=== PATIENT | female | born 1950 | race Caucasian/White ===

== ENCOUNTER 2023-07-07 00:01 | Emergency (ER) | payer BC, MEDICARE ==
[2023-07-07 00:33] LABS: BASOPHILS ABSOLUTE AUTO 0.04 K/uL (0.00-0.20); BASOPHILS PERCENT AUTO 0.4 % (0.0-2.0); EOSINOPHILS ABSOLUTE AUTO 0.21 K/uL (0.00-0.50); EOSINOPHILS PERCENT AUTO 1.9 % (0.0-5.0); HEMOGLOBIN 14.1 g/dL (11.7-15.5); LYMPHOCYTES ABSOLUTE AUTO 2.09 K/uL (0.50-3.50); LYMPHOCYTES PERCENT AUTO 18.7 % (10.0-50.0); MEAN CORPUSCULAR HEMOGLOBIN 25.3 pg (28.2-33.3); MONOCYTES ABSOLUTE AUTO 0.78 K/uL (0.00-1.00); NEUTROPHILS ABSOLUTE AUTO 8.08 K/uL (1.40-7.00); PLATELET COUNT,PLT 216 K/uL (150-350); RED BLOOD CELL COUNT 5.57 M/uL (3.77-5.09); RED CELL DISTRIBUTION WIDTH 15.3 % (11.2-14.1); WHITE BLOOD CELL COUNT,WBC 11.2 K/uL (4.0-10.2)
[2023-07-07] MEDS: Ketorolac 15 MG/ML SDV IVPUSH STA (00:40)
[2023-07-07] MEDS: Ondansetron 4 MG/2 ML SDV IVPUSH ONE (00:40)
[2023-07-07] MEDS: Sodium Chloride 0.9% 10 ML Syringe FLUSH PRN (00:41)
[2023-07-07] MEDS: Sodium Chloride 0.9% 1,000 ML IV SCH (00:48)
[2023-07-07 00:51] LABS: ALANINE AMINOTRANSFERASE,ALT 20 U/L (12-78); ALBUMIN 3.6 g/dL (3.4-5.0); ALKALINE PHOSPHATASE 124 IU/L (46-116); ANION GAP 9.6 meq/L (7-15); ASPARTATE AMNIOTRANSFERASE,AST 23 U/L (15-37); BILIRUBIN TOTAL 0.7 mg/dL (0.2-1.0); BLOOD UREA NITROGEN,BUN 32 mg/dL (7-18); C-REACTIVE PROTEIN 1.61 mg/dL (0.05-0.30); CALCIUM 9.1 mg/dL (8.5-10.1); CARBON DIOXIDE,CO2 25.4 mmol/L (21.0-32.0); CHLORIDE,CL 104 mmol/L (98-107); CREATININE 1.45 mg/dL (0.51-1.17); ESTIMATED GFR 39 mL/min (>=60); GLUCOSE RANDOM 186 mg/dL (70-99); POTASSIUM,K 4.2 mmol/L (3.5-5.1); PROTEIN TOTAL,TP 7.5 g/dL (6.4-8.2); SODIUM,NA 139 mmol/L (136-145)
== END 2023-07-07 02:30 | disposition home or self-care (01) ==
LOC: LL.ED 00:01
DX: K52.9 Noninfective gastroenteritis and colitis, unspecified (principal); I10 Essential (primary) hypertension; E11.9 Type 2 diabetes mellitus without complications; E03.9 Hypothyroidism, unspecified; E66.9 Obesity, unspecified; Z79.82 Long term (current) use of aspirin; Z79.899 Other long term (current) drug therapy; Z79.84 Long term (current) use of oral hypoglycemic drugs
CPT/HCPCS: 36415; 74176; 80053; 85025; 86140; 96361; 96374; 96375; 99284-25; J1885; J2405; J3490; J7030

== ENCOUNTER 2024-01-11 20:14 | Emergency (ER) | payer BC, MEDICARE ==
[2024-01-11 21:34] LABS: BASOPHILS ABSOLUTE AUTO 0.05 K/uL (0.00-0.20); BASOPHILS PERCENT AUTO 0.4 % (0.0-2.0); EOSINOPHILS PERCENT AUTO 1.7 % (0.0-5.0); HEMATOCRIT 43.2 % (34.0-46.0); HEMOGLOBIN 13.8 g/dL (11.7-15.5); LYMPHOCYTES ABSOLUTE AUTO 2.18 K/uL (0.50-3.50); LYMPHOCYTES PERCENT AUTO 18.3 % (10.0-50.0); MEAN CORPUSCULAR HEMOGLOBIN 25.7 pg (28.2-33.3); MEAN CORPUSCULAR HGB CONC 31.9 g/dL (31.7-36.0); MEAN CORPUSCULAR VOLUME 80.6 fL (84.0-98.0); MONOCYTES ABSOLUTE AUTO 0.69 K/uL (0.00-1.00); MONOCYTES PERCENT AUTO 5.8 % (2.0-14.0); NEUTROPHILS ABSOLUTE AUTO 8.77 K/uL (1.40-7.00); NEUTROPHILS PERCENT AUTO 73.8 % (45.0-80.0); PLATELET COUNT,PLT 261 K/uL (150-350); RED BLOOD CELL COUNT 5.36 M/uL (3.77-5.09); WHITE BLOOD CELL COUNT,WBC 11.9 K/uL (4.0-10.2)
[2024-01-11 21:55] LABS: ALANINE AMINOTRANSFERASE,ALT 18 U/L (12-78); ALBUMIN 3.6 g/dL (3.4-5.0); ALKALINE PHOSPHATASE 113 IU/L (46-116); ASPARTATE AMNIOTRANSFERASE,AST 22 U/L (15-37); BILIRUBIN TOTAL 0.9 mg/dL (0.2-1.0); BLOOD UREA NITROGEN,BUN 39 mg/dL (7-18); C-REACTIVE PROTEIN 1.59 mg/dL (0.05-0.30); CALCIUM 9.1 mg/dL (8.5-10.1); CHLORIDE,CL 103 mmol/L (98-107); CREATININE 1.88 mg/dL (0.51-1.17); ESTIMATED GFR 28 mL/min (>=60); GLUCOSE RANDOM 189 mg/dL (70-99); POTASSIUM,K 5.1 mmol/L (3.5-5.1); PROTEIN TOTAL,TP 7.2 g/dL (6.4-8.2); SODIUM,NA 139 mmol/L (136-145)
[2024-01-11] MEDS: Take Home: Ondansetron 4 MG Tab.DIS, 5 Tab Pack PO ONE (22:24)
== END 2024-01-11 22:40 | disposition home or self-care (01) ==
LOC: LL.ED 20:14
DX: K52.9 Noninfective gastroenteritis and colitis, unspecified (principal); I10 Essential (primary) hypertension; E11.9 Type 2 diabetes mellitus without complications; E03.9 Hypothyroidism, unspecified; E66.9 Obesity, unspecified; Z79.899 Other long term (current) drug therapy; Z79.82 Long term (current) use of aspirin; Z79.4 Long term (current) use of insulin
CPT/HCPCS: 36415; 80053; 85025; 86140; 99284; Q0162

== ENCOUNTER 2024-04-22 17:54 | Emergency (ER) | payer BC ==
[2024-04-22 18:18] VITALS: BP 132/71; PULSE 102
== END 2024-04-22 18:45 | disposition home or self-care (01) ==
LOC: LL.ED 17:54
DX: R10.9 Unspecified abdominal pain (principal); R11.0 Nausea; I10 Essential (primary) hypertension; E11.9 Type 2 diabetes mellitus without complications; E03.9 Hypothyroidism, unspecified; E66.9 Obesity, unspecified; Z90.49 Acquired absence of other specified parts of digestive tract; Z79.4 Long term (current) use of insulin; Z79.84 Long term (current) use of oral hypoglycemic drugs; Z79.890 Hormone replacement therapy; Z79.899 Other long term (current) drug therapy; Z68.41 Body mass index [BMI] 40.0-44.9, adult
CPT/HCPCS: 99283; 99284

== ENCOUNTER 2024-05-16 14:19 | Emergency (ER) | payer BC ==
[2024-05-16 14:49] LABS: BASOPHILS ABSOLUTE AUTO 0.05 K/uL (0.00-0.20); BASOPHILS PERCENT AUTO 0.7 % (0.0-2.0); EOSINOPHILS ABSOLUTE AUTO 0.27 K/uL (0.00-0.50); EOSINOPHILS PERCENT AUTO 3.9 % (0.0-5.0); HEMATOCRIT 36.8 % (34.0-46.0); HEMOGLOBIN 11.7 g/dL (11.7-15.5); IMMATURE GRAN ABSOLUTE AUTO 0.02 10^3/uL (0.00-0.04); IMMATURE GRAN PERCENT AUTO 0.3 % (0.0-0.4); LYMPHOCYTES ABSOLUTE AUTO 1.99 K/uL (0.50-3.50); LYMPHOCYTES PERCENT AUTO 28.6 % (10.0-50.0); MEAN CORPUSCULAR HGB CONC 31.8 g/dL (31.7-36.0); MEAN CORPUSCULAR VOLUME 81.8 fL (84.0-98.0); MONOCYTES ABSOLUTE AUTO 0.41 K/uL (0.00-1.00); MONOCYTES PERCENT AUTO 5.9 % (2.0-14.0); NEUTROPHILS ABSOLUTE AUTO 4.23 K/uL (1.40-7.00); NEUTROPHILS PERCENT AUTO 60.6 % (45.0-80.0); PLATELET COUNT,PLT 171 K/uL (150-350); RED CELL DISTRIBUTION WIDTH 15.2 % (11.2-14.1)
[2024-05-16 15:08] LABS: APPEARANCE,URINE CLEAR; BILIRUBIN,URINE NEGATIVE (NEGATIVE); COLOR,URINE YELLOW; GLUCOSE,URINE NEGATIVE (NEGATIVE); KETONES,URINE NEGATIVE (NEGATIVE); LEUKOCYTE ESTERASE,URINE NEGATIVE (NEGATIVE); NITRITE,URINE NEGATIVE (NEGATIVE); OCCULT BLOOD,URINE NEGATIVE (NEGATIVE); PH,URINE 6.5 (5.0-9.0); PROTEIN,URINE 100 mg/dL (NEGATIVE); UROBILINOGEN,URINE 0.2 E.U./dL (0.2-1.0)
[2024-05-16 15:12] LABS: ALBUMIN 3.9 g/dL (3.4-5.0); ANION GAP 11.3 meq/L (7-15); BILIRUBIN TOTAL 0.6 mg/dL (0.2-1.0); CALCIUM 9.2 mg/dL (8.5-10.1); CARBON DIOXIDE,CO2 25.7 mmol/L (21.0-32.0); CREATININE 1.63 mg/dL (0.51-1.17); EST CRCL DRUG DOSING (CG) 29.63 mL/min; POTASSIUM,K 4.2 mmol/L (3.5-5.1); PROTEIN TOTAL,TP 7.8 g/dL (6.4-8.2)
[2024-05-16 15:14] LABS: RBC,URINE 0-5 /HPF; WBC,URINE 0-5 /HPF
[2024-05-16] MEDS: Bacitracin/Neomycin/Polymyxin B Oint 0.9 GM U/D Packet TOP ONE (16:49)
[2024-05-16] MEDS: Lidocaine 1% 5 ML VIAL INJECT ONE (16:50)
[2024-05-16] MEDS: traMADol 50 MG Tab PO ONE (17:31)
[2024-05-16] MEDS: cefTRIAXone 1 GM Vial IVPUSH ONE (17:32)
[2024-05-16] MEDS: Acetaminophen 325 MG Tab PO ONE (17:32)
[2024-05-16] MEDS: Diphtheria,Pertussis(Acell),Tetanus Vaccine 0.5 ML Syringe IM ONE (18:21)
== END 2024-05-16 18:05 | disposition home or self-care (01) ==
LOC: LL.ED 14:19
DX: S02.2XXB Fracture of nasal bones, initial encounter for open fracture (principal); S60.222A Contusion of left hand, initial encounter; I10 Essential (primary) hypertension; E11.9 Type 2 diabetes mellitus without complications; E66.9 Obesity, unspecified; E03.9 Hypothyroidism, unspecified; Z90.49 Acquired absence of other specified parts of digestive tract; Z79.899 Other long term (current) drug therapy; Z79.4 Long term (current) use of insulin; Z79.84 Long term (current) use of oral hypoglycemic drugs; Z79.890 Hormone replacement therapy; Z79.85 Long-term (current) use of injectable non-insulin antidiabetic drugs; Z23 Encounter for immunization; Z68.41 Body mass index [BMI] 40.0-44.9, adult; W01.0XXA Fall on same level from slipping, tripping and stumbling without subsequent striking against object, initial encounter
CPT/HCPCS: 12011; 36415; 70450; 70486; 72125; 73130-LT; 80053; 81001; 85025; 90471; 90715; 96374; 99283; 99284-25; A9270-GY; J0696; J3490

== ENCOUNTER 2024-08-26 15:47 | Emergency (ER) | payer BC, OTHER ==
[2024-08-26 16:08] LABS: BASOPHILS ABSOLUTE AUTO 0.08 K/uL (0.00-0.20); BASOPHILS PERCENT AUTO 0.4 % (0.0-2.0); EOSINOPHILS ABSOLUTE AUTO 0.38 K/uL (0.00-0.50); EOSINOPHILS PERCENT AUTO 1.8 % (0.0-5.0); HEMATOCRIT 49.4 % (34.0-46.0); HEMOGLOBIN 15.8 g/dL (11.7-15.5); IMMATURE GRAN ABSOLUTE AUTO 0.06 10^3/uL (0.00-0.04); IMMATURE GRAN PERCENT AUTO 0.3 % (0.0-0.4); LYMPHOCYTES ABSOLUTE AUTO 5.33 K/uL (0.50-3.50); LYMPHOCYTES PERCENT AUTO 24.8 % (10.0-50.0); MEAN CORPUSCULAR HEMOGLOBIN 26.5 pg (28.2-33.3); MEAN CORPUSCULAR VOLUME 82.7 fL (84.0-98.0); MONOCYTES ABSOLUTE AUTO 0.82 K/uL (0.00-1.00); MONOCYTES PERCENT AUTO 3.8 % (2.0-14.0); NEUTROPHILS ABSOLUTE AUTO 14.82 K/uL (1.40-7.00); NEUTROPHILS PERCENT AUTO 68.9 % (45.0-80.0); PLATELET COUNT,PLT 313 K/uL (150-350); RED BLOOD CELL COUNT 5.97 M/uL (3.77-5.09); RED CELL DISTRIBUTION WIDTH 14.7 % (11.2-14.1); WHITE BLOOD CELL COUNT,WBC 21.5 K/uL (4.0-10.2)
[2024-08-26] MEDS: Ondansetron 4 MG/2 ML SDV IVPUSH ONE (16:15)
[2024-08-26] MEDS: Sodium Chloride 0.9% 10 ML Syringe FLUSH PRN (16:15)
[2024-08-26 16:24] LABS: ALBUMIN 3.7 g/dL (3.4-5.0); ANION GAP 9.6 meq/L (7-15); BILIRUBIN TOTAL 0.5 mg/dL (0.2-1.0); CALCIUM 9.7 mg/dL (8.5-10.1); CARBON DIOXIDE,CO2 26.4 mmol/L (21.0-32.0); CREATININE 1.88 mg/dL (0.51-1.17); EST CRCL DRUG DOSING (CG) 25.69 mL/min; POTASSIUM,K 4.4 mmol/L (3.5-5.1); PROTEIN TOTAL,TP 7.5 g/dL (6.4-8.2)
[2024-08-26] MEDS: Sodium Chloride 0.9% 1,000 ML IV ONE ×2 (16:39→18:34)
[2024-08-26] MEDS: Loperamide 2 MG Tab PO ONE (16:44)
[2024-08-26 16:58] LABS: CORONAVIRUS COVID-19 NAA NEGATIVE (NEGATIVE); INFLUENZA A NAA NEGATIVE (NEGATIVE); INFLUENZA B NAA NEGATIVE (NEGATIVE); RESPIRATORY SYNCYTIAL VIR NAA NEGATIVE (NEGATIVE)
== END 2024-08-26 20:35 | disposition home or self-care (01) ==
LOC: LL.ED 15:47
DX: E86.0 Dehydration (principal); I10 Essential (primary) hypertension; E11.9 Type 2 diabetes mellitus without complications; E03.9 Hypothyroidism, unspecified; Z90.49 Acquired absence of other specified parts of digestive tract; Z79.890 Hormone replacement therapy; Z79.4 Long term (current) use of insulin; Z79.899 Other long term (current) drug therapy; Z79.84 Long term (current) use of oral hypoglycemic drugs; Z79.85 Long-term (current) use of injectable non-insulin antidiabetic drugs
CPT/HCPCS: 0241U; 36415; 80053; 82947; 83605; 85025; 96361; 96374; 99284; 99285-25; A9270-GY; J2405; J7030